=== PATIENT | female | born 1945 | race Caucasian/White ===

== ENCOUNTER 2018-05-06 05:32 | Inpatient (IN) | payer MEDICARE, OTHER ==
[2018-05-06] MEDS ORDERED: ENOXAPARIN SODIUM 40 MG/0.4 ML DISP.SYRIN SQ ONE (05:52)
[2018-05-06] MEDS ORDERED: LACTATED RINGERS 1,000 ML IV ONE (05:52)
[2018-05-06] MEDS ORDERED: FAMOTIDINE/PF 20 MG/2 ML VIAL ONE (05:53)
[2018-05-06] MEDS ORDERED: SCOPOLAMINE HYDROBROMIDE 1.5MG/72HR PATCH TD ONE (06:29)
[2018-05-06] MEDS ORDERED: LEVALBUTEROL HCL 1.25 MG/3 ML AMPUL.NEB NEB ONE (07:32)
[2018-05-06] MEDS ORDERED: DESFLURANE 240 ML LIQUID IH ONE (08:48)
[2018-05-06] MEDS ORDERED: GLYCOPYRROLATE 0.2 MG/1 ML 1 ML ONE (08:48)
[2018-05-06] MEDS ORDERED: ONDANSETRON HCL/PF 4 MG/ 2ML VIAL ONE (08:48)
[2018-05-06] MEDS ORDERED: PROMETHAZINE HCL 25 MG/ML VIAL ONE (08:48)
[2018-05-06] MEDS ORDERED: ceFAZolin SODIUM 1 GM VIAL ONE ×2 (08:48→17:13)
[2018-05-06] MEDS ORDERED: LACTATED RINGERS 1,000 ML IV.SOLN IV ONE (08:48)
[2018-05-06] MEDS ORDERED: SUGAMMADEX 200 mg/2mL 200 MG/2 ML VIAL IV ONE (08:48)
[2018-05-06] MEDS ORDERED: LIDOCAINE HCL/PF 2% 100 MG/5 ML VIAL IJ ONE (08:48)
[2018-05-06] MEDS ORDERED: HYDROmorphone HCL/PF 1 MG/ML DISP.SYRIN ONE ×2 (08:48→10:20)
[2018-05-06] MEDS ORDERED: ePHEDrine SULFATE 50 MG/1 ML IVP ONE (08:48)
[2018-05-06] MEDS ORDERED: FENTANYL 250MCG/5ML VIAL ONE (08:48)
[2018-05-06] MEDS ORDERED: ACETAMINOPHEN 1,000 MG/100 ML INJ IV ONE (08:48)
[2018-05-06] MEDS ORDERED: DEXAMETHASONE SOD PHOS 4 MG/ML VIAL ONE (08:48)
[2018-05-06] MEDS ORDERED: ROCURONIUM BROMIDE 10 MG/ML 5ML VIAL ONE (08:48)
[2018-05-06] MEDS ORDERED: PROPOFOL 200 MG/20 ML VIAL IV ONE (08:48)
[2018-05-06 13:26] VITALS: BMI 38.5
[2018-05-06] MEDS ORDERED: diphenhydrAMINE HCL 50 MG/ML VIAL IVP PRN (13:40)
--- NOTE | 2018-05-06 13:40 | History and Physical Report ---
History of Present Illnes - History of Present Illness Reason for Visit: Morbid obesity, hiatal hernia History of Present Illness: Kamryn is here for gastric sleeve placement, as well as hiatal hernia repair. She had a lap band placed several years ago in [place], however she says that the band was placed too high, and it did not compress her stomach. She had only about 30 lbs of weight loss after this procedure, and it was removed about six months ago. She says that her primary reason for having her gastric sleeve done is lack of weight loss and worsening hypertension over the course of time. She had gastric sleeve and hiatal hernia repair done today by Dr Babcock and there were no complications in the OR. Cardiac clearance done by Dr. Seay at [facility] in [place]. - Past Medical History Pulmonary: Asthma, Sleep Apnea PROGRAM MANAGEMENT ANALYST: CVA (x5) Gastrointestinal: Constipation Psych: Depression Rheumatologic: Rheumatoid arthritis Renal/: Other (Renal lithiasis) Grav: 3 Para: 3 (All by [facility]) - Past Surgical History Past Surgical History: Appendectomy, (x3), Hysterectomy, Other (Finger surgery, toe surgery, adjustable lap band) - Past Social History Smoke: Quit (1992) Alcohol: Rare Drugs: None Lives: With Family ( [place]) - Health Maintenance Health Maintenance: Cholesterol Influenza Vaccine: Current for this Influenza Season Pneumonia Vaccine: Yes Resuscitation Status: Resusciation Status Resuscitation Status Full Code - Unable to Obtain History Unable to Obtain: No Review of Systems - Review of Systems Constitutional: negative: Fever, Chills Eyes: negative: pain ENT: negative: Ear Pain, Ear Discharge Respiratory: Wheezing. negative: Cough Cardiovascular: negative: Chest Pain Gastrointestinal: Nausea. negative: Vomiting Genitourinary: negative: Dysuria Musculoskeletal: Shoulder Pain (right). negative: Neck Pain Skin: negative: Rash, Lesions Neurological: negative: Weakness, Change in Speech, Confusion - Medications/Allergies Home Medications: Home Medications Atorvastatin Calcium 20 mg PO HS 05/06/18 Carvedilol [Coreg] 25 mg PO BID 05/06/18 Fluticasone Propionate [Flonase] 1 spray BID PRN 05/06/18 Hydralazine HCl 25 mg PO TID 05/06/18 Hydrochlorothiazide 25 mg PO DAILY 05/06/18 Hydroxychloroquine Sulfate [Plaquenil] 200 mg PO BID 05/06/18 [place]am/Me Blue/Ba/Salicy/Hyo [Re Methylphen Tablet] 1 gm PO BID 05/06/18 Methotrexate Sodium [Rheumatrex] 2.5 mg PO WEEK 05/06/18 Modafinil [Provigil] 100 mg PO DAILY 05/06/18 Naproxen 500 mg PO BID 05/06/18 amLODIPine BESYLATE [Norvasc] 10 mg PO [id number] 05/06/18 Current Inpatient Medications: Current Inpatient Medications Cefazolin Sodium/Dextrose (Cefazolin 1 G/50 Ml-Dextrose) 1 gm IV Q8H GENEVIEVE Stop: 05/07/18 02:01 Morphine Sulfate (Depodur) 4 mg IVP Q2 PRN PRN Reason: Severe Pain 8-10 Stop: 05/10/18 09:10 Exam - Exam Vital Signs: Vital Signs (72 hours) 05/06/18 05/06/18 05/06/18 10:35 10:45 11:00 Temperature 97.7 F 97.7 F 97.7 F Pulse Rate [ 68 68 66 Left Brachial] Respiratory 22 22 22 Rate Blood Pressure 121/64 121/64 145/84 [Right Arm] O2 Sat by Pulse 98 98 98 Oximetry 05/06/18 11:30 Temperature 97.9 F Pulse Rate [ 64 Left Brachial] Respiratory 20 Rate Blood Pressure 129/50 [Right Arm] O2 Sat by Pulse 98 Oximetry General: Alert, Oriented to Person, Oriented to Place, Moderate distress (due to abdominal pain) HEENT: Atraumatic, PERRLA, EOMI Neck: No: Stridor, Rigidity Lungs: Wheezes Cardiovascular: Regular rate, Normal S1, Normal S2 Murmur: No: Systolic Murmur Abdomen: Normal bowel sounds, Other (Incisions are dry and dressed) Genitourinary: No: Other Male Genitourinary: No: Other Female Genitourinary: No: Other Integumentary: Normal, [place], Warm, Dry Extremities: No clubbing, No cyanosis, No edema, Normal pulses, Other (scars on right 4th and 5th dorsal toes from previous surgery) Neurological: Normal speech Psych/Mental Status: Mental status NL Assessment/Plan - Assessment/Plan (1) Morbid obesity Status: Acute Current Visit: Yes Assessment: S/P gastric sleeve Plan: Ambulate, advance diet as tolerated (2) Hypertension Status: Acute Current Visit: Yes Qualifiers: Hypertension type: essential hypertension Qualified Code(s): I10 - Essential (primary) hypertension Assessment: BP currently well controlled (3) Obstructive sleep apnea Status: Acute Current Visit: Yes Assessment: x 20 years. Patient has her own CPAP, and order is written for this (4) Anxiety Status: Acute Current Visit: Yes Assessment: Stable, currently on no medications for this. (5) Depression Status: Acute Current Visit: Yes Qualifiers: Depression Type: major depressive disorder Major depression recurrence: recurrent Active/Remission status: in full remission Qualified Code(s): F33.42 - Major depressive disorder, recurrent, in full remission Assessment: Currently on no medications (6) Rheumatoid arthritis Status: Acute Current Visit: Yes Qualifiers: Rheumatoid arthritis location: multiple sites Rheumatoid factor presence: unspecified presence Qualified Code(s): M06.9 - Rheumatoid arthritis, unspecified Assessment: Currently on Plaquenil and Methotrexate. VTE Assessment - RISK FACTOR SCORE VTE RISK FACTOR SCORES: AGE OVER 60 YEARS, OBESITY, MINOR SURGERY/ ANESTHESIA TIME < 1 HOUR (On Lovenox)
[2018-05-06] MEDS ORDERED: LEVALBUTEROL HCL 1.25 MG/3 ML VIAL.NEB IH PRN (14:02)
[2018-05-06] MEDS: MORPHINE SULFATE 4 MG/ML PREFILLED SYR IVP PRN ×2 (14:08→21:51)
[2018-05-06] MEDS ORDERED: ONDANSETRON HCL/PF 4 MG/ 2ML VIAL IVP PRN (14:08)
[2018-05-06] MEDS ORDERED: PROMETHAZINE HCL 25 MG in 0.9 % SODIUM CHLORIDE 50 ML IV PRN (14:27)
[2018-05-06] MEDS: 0.9 % SODIUM CHLORIDE 1,000 ML IV SCH ×2 (14:59→20:30)
[2018-05-06] MEDS ORDERED: HYDROCODON ACETAMIN PO PRN (15:36)
[2018-05-06] MEDS ORDERED: ceFAZolin SODIUM 1 GM VIAL IV SCH (16:00)
[2018-05-06] MEDS: ENOXAPARIN SODIUM 40 MG/0.4 ML DISP.SYRIN SQ SCH (17:25)
[2018-05-06] MEDS: CEFAZOLIN SODIUM/DEXTROSE,ISO 1 GM/50 ML PIGGYBACK IV SCH (17:26)
[2018-05-06] MEDS: HYDRALAZINE HCL 25 MG TABLET PO SCH (19:03)
[2018-05-06] MEDS: HYDROCODON ACETAMIN PO PRN (19:10)
[2018-05-06] MEDS ORDERED: ATORVASTATIN CALCIUM 80 MG TABLET PO SCH (21:00)
[2018-05-06] MEDS ORDERED: CARVEDILOL 12.5 MG TABLET PO ONE (21:45)
[2018-05-06] MEDS: MODAFINIL 200 MG TABLET PO SCH (21:53)
[2018-05-06] MEDS: ATORVASTATIN CALCIUM 10 MG TABLET PO SCH (21:54)
[2018-05-06] MEDS: CARVEDILOL 25 MG TABLET PO SCH (21:55)
[2018-05-06] MEDS: FAMOTIDINE/PF 20 MG/2 ML VIAL IV SCH (21:55)
[2018-05-06] MEDS: HYDROXYCHLOROQUINE SULFATE 200 MG TABLET PO SCH (21:55)
[2018-05-07] MEDS: CEFAZOLIN SODIUM/DEXTROSE,ISO 1 GM/50 ML PIGGYBACK IV SCH (01:19)
[2018-05-07] MEDS: MORPHINE SULFATE 4 MG/ML PREFILLED SYR IVP PRN (02:46)
[2018-05-07] MEDS ORDERED: 0.9 % SODIUM CHLORIDE 50 ML IV ONE (08:22)
[2018-05-07] MEDS ORDERED: DOCUSATE SODIUM 100 MG CAPSULE PO SCH (09:00)
[2018-05-07 09:19] LABS: MEAN CORPUSCULAR HEMOGLOBIN 29.6 pg (28.0-34.0)
[2018-05-07 09:20] LABS: BASOPHILS % 0.3 (0.0-1.5); EOSINOPHILS % 0.8 % (0.0-6.8); NEUTROPHILS # 6.3 # k/uL (1.4-7.7)
[2018-05-07] MEDS: CARVEDILOL 25 MG TABLET PO SCH ×2 (09:23→21:51)
[2018-05-07] MEDS: HYDRALAZINE HCL 25 MG TABLET PO SCH ×3 (09:23→18:19)
[2018-05-07] MEDS: MODAFINIL 200 MG TABLET PO SCH ×2 (09:24→21:38)
[2018-05-07] MEDS: FAMOTIDINE/PF 20 MG/2 ML VIAL IV SCH ×2 (09:24→21:52)
[2018-05-07] MEDS: FOLIC ACID 1 MG TABLET PO SCH (09:24)
[2018-05-07] MEDS: HYDROXYCHLOROQUINE SULFATE 200 MG TABLET PO SCH ×2 (09:24→21:52)
[2018-05-07] MEDS: amLODIPine BESYLATE 5 MG TABLET PO SCH (09:24)
[2018-05-07 09:37] LABS: eGFR (Non-African) > 60
--- NOTE | 2018-05-07 10:48 | Inpatient Progress Note ---
Subjective - Required Recertification Statement I anticipate X number of days because-include discharge plan: 1 day - Review of Systems Events since last encounter: Patient has been doing fairly well since her gastric sleeve procedure yesterday. Patient has been up ambulating with minimal difficulty. Patient still complains of moderate pain. Patient has been obviated but is not had any vomiting. Patient denies that she is past any flattest at this time. Patient stated she usually is very constipated and have to take a laxative and stool softener in order to get her bowels to move. Patient denies any chest pain. Patient rn cardiac cath has been stable with a normal sinus rhythm.Patient oral intake has been stable. Patient is not had any difficulties with swallowing. General: Denies: Chills Pulmonary: Denies: Dyspnea, Cough Cardiovascular: Denies: Chest Pain, Palpitations, Light Headedness Gastrointestinal: Nausea, Abdominal Pain. Denies: Vomiting Objective - Exam Vitals and I&O: Vital Signs Temp 98.2 F 05/07/18 10:00 Pulse 65 05/07/18 10:00 Resp 18 05/07/18 10:00 BP 146/64 05/07/18 10:00 Pulse Ox 96 05/07/18 10:00 Intake & Output 05/06/18 05/06/18 05/07/18 11:59 23:59 11:59 Intake Total 1770 2170 Output Total 3500 650 Balance -1730 1520 Weight 108.409 kg Intake: IV 1350 1750 Right Wrist 1350 1750 Oral 420 420 Output: Urine 3500 650 Other: Voiding Method Toilet Toilet General: Alert, Oriented to Person, Oriented to Place, Oriented to Time, Cooperative, Moderate distress Neck: Supple, No JVD Lungs: Clear to auscultation, Normal air movement, Speaks full Sentences, Respiratory Distress. No: Wheezes (will), Rales, Rhonchi (all) Cardiovascular: Regular rate, Normal S1, Normal S2, No murmurs. No: Gallops Abdomen: Soft, Other (mild difuse tenderness noted), Decreased Bowel Sounds. No: Normal bowel sounds, Distended Extremities: No edema Skin: Normal, [place], Warm, Dry Neurological: Normal speech Psych/Mental Status: Mental status NL, Mood NL, Appropriate Affect, Intact Judgment - Results Results: Laboratory Results WBC 8.10 K/ul (4.00-12.00) 05/07/18 08:54 RBC 3.54 M/ul (3.90-5.20) L 05/07/18 08:54 Hgb 10.5 g/dL (12.0-16.0) L 05/07/18 08:54 Hct 31.8 % (34.5-46.5) L 05/07/18 08:54 MCV 90.0 fl (80.0-100.0) 05/07/18 08:54 MCH 29.6 pg (28.0-34.0) 05/07/18 08:54 MCHC 32.9 g/dL (30.0-36.0) 05/07/18 08:54 RDW 15.2 % (11.3-14.3) H 05/07/18 08:54 Plt Count 249 K/mm3 (130-400) 05/07/18 08:54 Neut % (Auto) 78.6 % (39.0-79.0) 05/07/18 08:54 Lymph % (Auto) 11.3 % (16.0-50.0) L 05/07/18 08:54 [place] % (Auto) 9.0 % (0.0-11.0) 05/07/18 08:54 Eos % (Auto) 0.8 % (0.0-6.8) 05/07/18 08:54 Baso % (Auto) 0.3 (0.0-1.5) 05/07/18 08:54 Neut # (Auto) 6.3 # k/uL (1.4-7.7) 05/07/18 08:54 Lymph # (Auto) 0.9 # k/uL (0.6-4.0) 05/07/18 08:54 [place] # (Auto) 0.7 # k/uL (0.0-0.9) 05/07/18 08:54 Eos # (Auto) 0.1 # k/uL (0.0-0.6) 05/07/18 08:54 Baso # (Auto) 0.0 # k/uL (0.0-0.5) 05/07/18 08:54 Sodium 136 mmol/L (136-145) 05/07/18 08:54 Potassium 3.6 mmol/L (3.5-5.1) 05/07/18 08:54 Chloride 108 mmol/L (98-107) H 05/07/18 08:54 Carbon Dioxide 21 mmol/L (22-30) L 05/07/18 08:54 BUN 14 mg/dL (7-17) 05/07/18 08:54 Creatinine 0.70 mg/dL (0.52-1.04) 05/07/18 08:54 Estimated Creat Clear 141 05/07/18 08:54 Est GFR ( Amer) > 60 (60-) 05/07/18 08:54 Est GFR (Non-Af Amer) > 60 (60-) 05/07/18 08:54 Glucose 92 mg/dL (74-106) 05/07/18 08:54 Calcium 8.4 mg/dL (8.4-10.2) 05/07/18 08:54 Total Bilirubin 0.4 mg/dL (0.2-1.3) 05/07/18 08:54 AST 31 U/L (15-46) 05/07/18 08:54 ALT 39 U/L (13-69) 05/07/18 08:54 Alkaline Phosphatase 60 U/L (38-126) 05/07/18 08:54 Total Protein 6.0 g/dL (6.3-8.2) L 05/07/18 08:54 Albumin 3.3 g/dL (3.5-5.0) L 05/07/18 08:54 Assessment/Plan - Assessment/Plan (1) Chronic constipation Status: Acute Current Visit: Yes Assessment: Patient will be given colace. Will have patient sip on miralax throughout the day. Encouraged to be ambualting to help with BM and to use Narcotic pain meds sparingly. (2) Hypertension Status: Acute Current Visit: Yes Qualifiers: Hypertension type: essential hypertension Qualified Code(s): I10 - Essential (primary) hypertension Assessment: BP has been stable running about 120-150/80s. Patient denies any chest pain or chest pressure. (3) Morbid obesity Status: Acute Current Visit: Yes Assessment: Post Op day #1 Patient seemed to be doing well with her gastric sleeve surgery. Encourage the patient to continue to use her incentive spirometry on a frequent basis. Encourage the patient to be up ambulating. Hemoglobin and hematocrit are stable.
[2018-05-07] MEDS: POLYETHYLENE GLYCOL 3350 17 GM POWD.PACK PO SCH (12:04)
[2018-05-07] MEDS: DOCUSATE SODIUM 100 MG/10 ML S/F LIQUID PO SCH (12:04)
[2018-05-07] MEDS: ENOXAPARIN SODIUM 40 MG/0.4 ML DISP.SYRIN SQ SCH (13:59)
[2018-05-07] MEDS: 0.9 % SODIUM CHLORIDE 1,000 ML IV SCH ×2 (16:39→21:56)
[2018-05-07] MEDS: HYDROCODON ACETAMIN PO PRN (18:20)
[2018-05-07] MEDS: ATORVASTATIN CALCIUM 10 MG TABLET PO SCH (21:51)
[2018-05-08] MEDS: HYDROCODON ACETAMIN PO PRN ×2 (04:06→11:04)
[2018-05-08] MEDS: 0.9 % SODIUM CHLORIDE 1,000 ML IV SCH (04:07)
[2018-05-08] MEDS ORDERED: 0.9 % SODIUM CHLORIDE 50 ML IV ONE (08:05)
[2018-05-08] MEDS: HYDRALAZINE HCL 25 MG TABLET PO SCH (08:13)
[2018-05-08] MEDS: DOCUSATE SODIUM 100 MG/10 ML S/F LIQUID PO SCH (08:15)
[2018-05-08] MEDS: amLODIPine BESYLATE 5 MG TABLET PO SCH (08:15)
[2018-05-08] MEDS: CARVEDILOL 25 MG TABLET PO SCH (08:15)
[2018-05-08] MEDS: FOLIC ACID 1 MG TABLET PO SCH (08:15)
[2018-05-08] MEDS: MODAFINIL 200 MG TABLET PO SCH (08:17)
[2018-05-08] MEDS: HYDROXYCHLOROQUINE SULFATE 200 MG TABLET PO SCH (08:17)
[2018-05-08] MEDS: FAMOTIDINE/PF 20 MG/2 ML VIAL IV SCH (08:17)
[2018-05-08] MEDS: POLYETHYLENE GLYCOL 3350 17 GM POWD.PACK PO SCH (08:18)
[2018-05-08 09:34] VITALS: BP 144/76
--- NOTE | 2018-05-14 12:31 | Discharge Summary ---
DATE OF ADMISSION: May 06, 2018 DATE OF DISCHARGE: May 08, 2018 DIAGNOSES ON THIS HOSPITALIZATION: 1. Morbid obesity. 2. Obstructive sleep apnea. 3. Hypertension. 4. Anxiety. 5. Depression. 6. Rheumatoid arthritis. SUMMARIZATION OF ADMISSION HISTORY AND PHYSICAL: This is a 73-year-old female who presented for a gastric sleeve placement and hiatal hernia repair. She had a lap band done several years previously, however, it failed and that had been removed about 6 months ago. She then presented for a gastric sleeve procedure which was performed the day of admission. HOSPITAL COURSE: Her hospital course was really unremarkable. Her labs were unremarkable postoperatively and also her blood pressure was well controlled. She was discharged to home then with continuation of all of her home medications with the addition of some hydrocodone syrup 7.5 mg per 5 mL, 10 mL every 6 hours as needed for pain and some Phenergan syrup 6.25 mg per 5 mL, 10 mL every 6 hours also as needed for nausea. DISCHARGE INSTRUCTIONS: Follow up on May 14, 2018, at 9:15 a.m. in [place], [place], at [facility] office. [place]
== END 2018-05-08 11:10 | disposition home or self-care (01) | DRG 621 ==
LOC: OPSURG 05:32 → SOUTH 10:49
PROVIDERS: ADMIT Family Medicine; ATTEND Family Medicine
DX: E66.01 Morbid (severe) obesity due to excess calories (principal); Z68.41 Body mass index [BMI] 40.0-44.9, adult; I10 Essential (primary) hypertension; M19.90 Unspecified osteoarthritis, unspecified site; G47.33 Obstructive sleep apnea (adult) (pediatric); K44.9 Diaphragmatic hernia without obstruction or gangrene; K66.0 Peritoneal adhesions (postprocedural) (postinfection); F41.9 Anxiety disorder, unspecified; F32.9 Major depressive disorder, single episode, unspecified
CPT/HCPCS: 36415; 43235; 80053; 85025; 99231; 99232; 99238; J0690; J1100; J1170; J1650; J2001; J2270; J2405; J2550; J2704; J3490; J7614; S0028; 43775; A9270-GY; J7030; J7120